=== PATIENT | female | born 1965 | race Asian ===

== ENCOUNTER 2018-10-19 23:19 | Emergency (ER) | payer SELFPAY ==
[~2018-10-19] VITALS: Ht 175.3 cm; Wt 84.4 kg
[2018-10-19 23:27] VITALS: BP 132/81
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
--- NOTE | 2018-10-19 23:47 | NUR ---
ELIZABETH PINEDA AT BEDSIDE.
[2018-10-19] MEDS ORDERED: IBUPROFEN 600 MG TABLET PO STA (23:55)
--- NOTE | 2018-10-19 23:59 | NUR ---
[facility] AT BEDSIDE, SPEAKING WITH PT.
[2018-10-20] MEDS ORDERED: IBUPROFEN 600 MG TABLET PO ONE (00:04)
--- NOTE | 2018-10-20 00:09 | NUR ---
PT TAKEN RADIOLOGY DEPT. VIA WHEELCHAIR.
--- NOTE | 2018-10-20 00:15 | NUR ---
PT RETURNED FROM RADIOLOGY DEPT.
== END 2018-10-20 01:19 | disposition home or self-care (01) ==
LOC: ER 23:21
DX: M54.2 Cervicalgia (principal); M54.6 Pain in thoracic spine; V49.59XA Passenger injured in collision with other motor vehicles in traffic accident, initial encounter; Y93.89 Activity, other specified; Y92.413 State road as the place of occurrence of the external cause; Y99.8 Other external cause status
CPT/HCPCS: 72050-TC